=== PATIENT | female | born 1970 | race Caucasian/White ===

== ENCOUNTER 2016-11-08 20:06 | Emergency (ER) | payer OTHER ==
[~2016-11-08 20:06] MED LIST: ALBUTEROL SULF8.5 GM IH; ALEVE220 M1 PO; FISH OIL CONC 11 CAP PO; MECLIZINE HCL25 M3 PO; NORCO 5/325 TAB1 TAB PO; PEPCID AC10 MG PO; TYLENOL325 MG PO; ULTRAM50 MG PO; ZANTAC150 M1 PO; ZOFRAN ODT4 MG/UDTAB PO; ZOFRAN4 M2 PO
[2016-11-08] MEDS ORDERED: NO HOME MEDICATION XX (20:37)
== END 2016-11-08 21:38 ==
LOC: EDMED 20:06
DX: S06.0X0A Concussion without loss of consciousness, initial encounter (principal); M79.1 Myalgia; I10 Essential (primary) hypertension; V49.40XA Driver injured in collision with unspecified motor vehicles in traffic accident, initial encounter; Y92.410 Unspecified street and highway as the place of occurrence of the external cause